=== PATIENT | female | born 1995 | race African-American/Black ===

== ENCOUNTER 2016-08-04 13:05 | Emergency (ER) | payer SELFPAY ==
[~2016-08-04] VITALS: Ht 170.2 cm; Wt 109.8 kg
[~2016-08-04 13:05] MED LIST: CIPR-217; PROMETHAZINE 25 MG
[2016-08-04 16:22] VITALS: BP 135/84
== END 2016-08-04 16:47 | disposition home or self-care (01) ==
LOC: ER 13:05
DX: O26.891 Other specified pregnancy related conditions, first trimester (principal); Z34.91 Encounter for supervision of normal pregnancy, unspecified, first trimester; F41.9 Anxiety disorder, unspecified; Z90.49 Acquired absence of other specified parts of digestive tract
CPT/HCPCS: 36415; 76801; 76817; 84702

== ENCOUNTER 2017-03-22 10:40 | Observation (INO) | payer MEDICAID ==
[2017-03-22] MEDS ORDERED: PREN27TA7 OR (12:15)
== END 2017-03-22 12:12 | disposition home or self-care (01) | DRG 566 ==
LOC: LDRP 10:40
PROVIDERS: ADMIT Specialist; ATTEND Specialist
DX: O62.9 Abnormality of forces of labor, unspecified (principal); O26.893 Other specified pregnancy related conditions, third trimester; R10.9 Unspecified abdominal pain; Z3A.37 37 weeks gestation of pregnancy
CPT/HCPCS: 59025; 81002; G0378

== ENCOUNTER 2017-03-23 09:05 | Observation (INO) | payer MEDICAID ==
[~2017-03-23] VITALS: Ht 170.2 cm; Wt 109.3 kg
[~2017-03-23 09:05] MED LIST changes: -CIPR-217; +PREN27TA7 OR; -PROMETHAZINE 25 MG
[2017-03-23 09:56] LABS: Urine Bilirubin Negative (Negative); Urine Blood Negative /uL (Negative); Urine Color Yellow (Yellow); Urine Glucose Normal (Normal); Urine Ketone Negative (Negative); Urine Nitrite Negative (Negative); Urine RBC 1 /hpf (0 - 4); Urine Squamous Epithelial Cell FEW /hpf (<5); Urine Urobilinogen Normal (Negative)
[2017-03-23 10:33] LABS: Basophils # (auto) 0 uL; Basophils % (auto) 0.4 % (0.0-2.0); Eosinophils # (auto) 0.1 uL; Eosinophils % (auto) 0.8 % (0.0-7.0); Hematocrit 37.6 % (36.0-46.0); Hemoglobin 12.5 g/dL (12.2-16.2); Lymphocytes # (auto) 2.1 uL; Lymphocytes % (auto) 28.5 % (10.0-50.0); Mean Corpuscular Hemoglobin 29.5 pg (28.0-32.0); Mean Corpuscular Hgb Conc. 33.4 g/dL (32.0-36.0); Mean Corpuscular Volume 88.4 fL (80.0-100.0); Mean Platelet Volume 8.6 fL (6.9-10.8); Monocytes # (auto) 0.4 uL; Monocytes % (auto) 5.6 % (0.0-12.0); Neutrophils # (auto) 4.8 uL; Neutrophils % (auto) 64.7 % (37.0-80.0); Nucleated Red Blood Cells % 0.1 %; Platelet Count (auto) 186 10^3/uL (140-450); Red Cell Distribution Width 15.2 % (11.8-14.3); White Blood Cell 7.4 10^3/uL (4.4-10.8)
[2017-03-23 10:56] LABS: Albumin 2.5 g/dL (3.4-5.0); BUN/Creatinine Ratio 9.1; Bilirubin, Total 0.2 mg/dL (0.2-1.0); Calcium 8.3 mg/dL (8.5-10.1); Potassium 3.6 mmol/L (3.5-5.1); Total Protein 6.6 g/dL (6.4-8.2)
== END 2017-03-23 11:00 | disposition home or self-care (01) | DRG 566 ==
LOC: LDRP 09:05
PROVIDERS: ADMIT Specialist; ATTEND Specialist
DX: O26.893 Other specified pregnancy related conditions, third trimester (principal); Z3A.37 37 weeks gestation of pregnancy
CPT/HCPCS: 36415; 59025; 76818; 80053; 80307; 81001; 81002; 85025; 86592; 86850; 86900; 86901; G0378

== ENCOUNTER 2017-03-26 10:40 | Observation (INO) | payer MEDICAID | END 2017-03-26 13:25 | disposition home or self-care (01) | DRG 566 | LOC: LDRP 10:40 | PROVIDERS: ADMIT Obstetrics & Gynecology; ATTEND Obstetrics & Gynecology | DX: O26.893 Other specified pregnancy related conditions, third trimester (principal); Z3A.38 38 weeks gestation of pregnancy | CPT/HCPCS: 59025; 76818; 81002; G0378 ==

== ENCOUNTER 2018-08-30 16:15 | Observation (INO) | payer MEDICAID | END 2018-08-30 17:40 | disposition home or self-care (01) | DRG 566 | LOC: UNDOADMOB 16:15 → LDRP 16:15 | PROVIDERS: ADMIT Specialist; ATTEND Specialist | DX: O62.9 Abnormality of forces of labor, unspecified (principal); Z3A.35 35 weeks gestation of pregnancy | CPT/HCPCS: 59025; 81002; G0378 ==

== ENCOUNTER 2018-09-20 12:00 | Observation (INO) | payer MEDICAID | END 2018-09-20 13:05 | disposition home or self-care (01) | DRG 566 | LOC: LDRP 12:00 | PROVIDERS: ADMIT Specialist; ATTEND Specialist | DX: O00.01 Abdominal pregnancy with intrauterine pregnancy (principal); O62.9 Abnormality of forces of labor, unspecified; Z3A.38 38 weeks gestation of pregnancy | CPT/HCPCS: 59025; 81002; G0378 ==

== ENCOUNTER 2025-02-14 15:43 | Emergency (ER) | payer MEDICAID ==
[~2025-02-14] VITALS: Ht 170.2 cm; Wt 104.0 kg
--- NOTE | 2025-02-14 15:49 | ECG ---
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
[2025-02-14 16:35] VITALS: PULSE 78; RESP 16; O2SAT 98
--- NOTE | 2025-02-14 16:48 | ED.PDOC ---
HPI (NEURO) HPI Comments 29 year old female presents to the ED with a chief complaint of headache onset today (02/14/25) around 14:50. Patient states she was bending over, cleaning bathtub when she began experiencing sharp, RT sided headache, LT hand numbness, dizziness, nausea. Patient took Ibuprofen 400 mg with no improvement of symptoms. Denies head injury, fall, LOC, vomiting, diarrhea, chest pain, shortness of breath, fever, chills. No other symptoms or modifying factors present at this time. Chief Complaint: Headache Time Seen by MD: 16:35 Primary Care Provider: NONE Reviewed Notes: Nurses Notes, Medications, Allergies Information Source: Patient Mode of Arrival: Ambulatory Severity: Moderate Headache Severity: Moderate Timing: Hours Duration: Since onset Prehospital treatment: None Headache Quality: Sharp Onset: At rest Circumstances: Spontaneous Symptoms: Numbness (LT hand) Before: Normal History of: None Modifying factors: Nothing Associated Signs and Symptoms: Headache Past Medical History PAST MEDICAL HISTORY: Denies Surgical History: Appendectomy COOK STATION History: No Pertinent COOK STATION History Family History Family History: Family hx of heart leonela, Family hx of HTN Social History Smoker: Non-Smoker Alcohol: Denies ETOH Use Drugs: Denies Drug Use Lives In: Home Constitutional: denies: chills, diaphoresis, fatigue, fever, malaise, sweats, weakness, others EENTM: denies: blurred vision, double vision, ear bleeding, ear discharge, ear drainage, ear pain, ear ringing, eye pain, eye redness, hearing loss, mouth pain, mouth swelling, nasal discharge, nose bleeding, nose congestion, nose pain, photophobia, tearing, throat pain, throat swelling, voice changes, others Respiratory: denies: cough, hemoptysis, orthopnea, SOB at rest, shortness of breath, SOB with excertion, stridor, wheezing, others Cardiovascular: denies: chest pain, dizzy spells, diaphoresis, Dyspnea on exertion, edema, irregular heart beat, left arm pain, lightheadedness, palpitations, PND, syncope, others Gastrointestinal: reports: nausea; denies: abdomen distended, abdominal pain, blood streaked bowels, constipated, diarrhea, dysphagia, difficulty swallowing, hematemesis, melena, poor appetite, poor fluid intake, rectal bleeding, rectal pain, vomiting, others Genitourinary: denies: abnormal vagina bleeding, burning, dyspareunia, dysuria, flank pain, frequency, hematuria, incontinence, pain, , vagina discharge, urgency, others Neurological: reports: headache, numbness (LT hand); denies: dizziness, fainting, left sided numbness, left sided weakness, paresthesia, pre-existing deficit, right sided numbness, right sided weakness, seizure, speech problems, tingling, tremors, weakness, others Musculoskeletal: denies: back pain, gout, joint pain, joint swelling, muscle pain, muscle stiffness, neck pain, others Integumetry: denies: bruises, change in color, change in hair/nails, dryness, laceration, lesions, lumps, rash, wounds, others Allergic/Immunocompromised: denies: Difficulty Healing, Frequent Infections, Hives, Itching, others Hematologic/Lymphatic: denies: anemia, blood clots, easy bleeding, easy bruising, swollen glands, others Endocrine: denies: excessive hunger, excessive sweating, excessive thirst, excessive urination, flushing, intolerance to cold, intolerance to heat, unexplained weight gain, unexplained weight loss, others Psychiatric: denies: anxiety, bipolar disorder, depression, hopeless, panic disorder, schizophrenia, sleepless, suicidal, others All Other Systems: Reviewed and Negative Physical Exam General Appearance: Normal HEENT: Normal ENT Inspection, Pharynx Normal, TMs Normal Neck: Full Range of Motion, Non-Tender, Normal, Normal Inspection Respiratory: Chest Non-Tender, Lungs Clear, No Accessory Muscle Use, No Respiratory Distress, Normal Breath Sounds Cardiovascular: No Edema, No JVD, No Murmur, No Gallop, Normal Peripheral Pulses, Regular Rate/Rhythm Breast Exam: Deferred Gastrointestinal: No Organomegaly, Non Tender, No Pulsatile Mass, Normal Bowel Sounds, Soft Genitalia: Deferred Pelvic: Deferred Rectal: Deferred Extremities: No calf tenderness, Normal capillary refill, Normal inspection, Normal range of motion, Non-tender, No pedal edema Musculoskeletal : Apperance: Normal Neurologic: Headache, Other (cranial nerve 2-12 intact. no focal deficits) Cerebellar Function: Normal Reflexes: Normal Skin: Dry, Normal Color, Warm Lymphatic: No Adenopathy EKG EKG : Pulse Rate (adult): 85 Cardiac Rhythm: NSR Was a procedure done? Was a procedure done?: No Differential Diagnosis (SZ) Seizure: Closed Head Injury, CVA/TIA, Drug Ingestion Headache: Cluster, Migraine, Subdural Hemorrhage, Mass Lesion X-Ray, Labs, Meds, VS Vital Signs Date Time Temp Pulse Resp B/P (MAP) Pulse Ox O2 Delivery O2 Flow Rate FiO2 02/14/25 16:48 85 02/14/25 16:35 78 16 98 Room Air* 0 21 02/14/25 16:27 98.0 80 20 137/93 (108) 99 98.0 02/14/25 15:51 98.2 81 16 140/94 98 98.2 02/14/25 15:47 85 Lab Test 02/14/25 14:35 Range/Units Urine Color Colorless Yellow Urine Clarity Clear Clear Urine pH 6.5 5.0-9.0 Urine Specific [place] 1.005 1.001-1.035 Urine Protein Negative Negative Urine Ketones Negative Negative Urine Blood Negative Negative /uL Urine Nitrite Negative Negative Urine Bilirubin Negative Negative Urine Urobilinogen Normal Negative mg/dL Urine Leukocyte Esterase Negative Negative /uL Urine RBC 1 0 - 4 /hpf Urine Microscopic WBC 2 0-5 /HPF Urine Squamous Epithelial Cells Few <5 /hpf Urine Amorphous Crystals Few None Seen /hpf Urine Bacteria None seen None Seen /hpf Urine Glucose Normal Normal mg/dL Current Medications Medications (Trade) Dose Ordered Sig/Gretchen Route Start Time Stop Time Status Last Admin Ketorolac Tromethamine (Toradol Injection) 30 mg ONCE ONCE IM 02/14/25 17:45 02/14/25 17:46 DC 02/14/25 18:08 Diphenhydramine HCl (Benadryl Injection) 25 mg ONCE ONCE IM 02/14/25 17:45 02/14/25 17:46 DC 02/14/25 18:08 X-Ray, Labs, Meds, VS Comment Imaging was reviewed by this provider, there is no obvious pathological or acute disease process. Pending radiology review Labs were reviewed by this provider, no abnormalities Vital signs reviewed by this provider, clinically stable Time of 1ST Reevaluation: 17:05 Reevaluation 1ST: Unchanged Patient Education/Counseling: Diagnosis, Treatment, Prognosis, Need For Follow Up (Follow up with PCP in next 2-3 days. Return to the emergency department if symptoms worsen.) Family Education/Counseling: No Family Present Departure 1 Departure Time of Disposition: 19:06 Impression: Primary Impression: Migraine Qualified Codes: G43.909 - Migraine, unspecified, not intractable, without status migrainosus Disposition: 01 HOME / SELF CARE / HOMELESS Condition: Stable e-Prescriptions Ibuprofen Micronized (Ibuprofen) 800 Mg Tab 800 MG PO TID PRN, #30 TAB Prov: TORI HOBSON 02/14/25 Cyclobenzaprine Hcl (Cyclobenzaprine Hcl) 5 Mg Tab 1 TAB PO TID, #30 TAB Prov: TORI HOBSON 02/14/25 Discharged With: Self Critical Care Note Critical Care Time?: No Stability Stability form required: No Heart Score Heart Score: Heart Score Response (Comments) Value History N/A 0 EKG N/A 0 Age N/A 0 Risk Factors N/A 0 Troponin N/A 0 Total 0 I personally scribed for TORI HOBSON ([email or web address]) on 02/14/25 at 16:48. Electronically submitted by Marcela Willson ([email or web address]). TORI HOBSON Feb 14, 2025 16:48
--- NOTE | 2025-02-14 17:48 | DVH ---
CT HEAD WITHOUT CONTRAST Indication: andrade EXAM DATE: 02/14/2025 05:06 PM COMPARISON: None TECHNIQUE: CT of the head without intravenous contrast. RADIATION DOSE: CTDIvol: 54 mGy, DLP: 864 mGy*cm FINDINGS: There is no intracranial hemorrhage. There is no extra-axial fluid, mass, mass effect or midline shift. The ventricles are midline and normal in size. Basilar cisterns are patent. Moura-white differentiation is maintained. The paranasal sinuses and mastoids are well-pneumatized. Imaged portion of the orbits are unremarkable. IMPRESSION: No intracranial hemorrhage or mass effect.
[2025-02-14 17:59] LABS: Urine Amorphous Crystal FEW /hpf (None Seen); Urine Protein, UAD Negative (Negative)
[2025-02-14] MEDS: diphenhydrAMINE HCL 50 MG/1 ML VL IM ONE (18:08)
[2025-02-14] MEDS: KETOROLAC TROMETH 30 MG/ML 1ML VIAL IM ONE (18:08)
[2025-02-14] MEDS ORDERED: CYCL-837 PO (19:07)
[2025-02-14] MEDS ORDERED: IBUP-1455 PO (19:07)
[2025-02-14 19:15] VITALS: BP 141/91; PULSE 76; RESP 16; TEMP 98.1; O2SAT 100
== END 2025-02-14 19:24 | disposition home or self-care (01) ==
LOC: ER 15:45
DX: G43.909 Migraine, unspecified, not intractable, without status migrainosus (principal); Z90.49 Acquired absence of other specified parts of digestive tract; Z79.899 Other long term (current) drug therapy
CPT/HCPCS: 70450; 81001; 93005; 96372; 99285; J1200; J1885